=== PATIENT | female | born 1960 | race Caucasian/White ===

== ENCOUNTER → 2022-03-11 | Outpatient (CLI) | payer OTHER ==
[2022-03-11 14:33] LABS: Basophils # (A) 0.06 X 10*3/uL (0.00-0.10); Basophils % (A) 0.9 %; Eosinophils # (A) 0.11 X 10*3/uL (0.04-0.35); Eosinophils % (A) 1.7 %; HCT 36.6 % (37.2-46.3); HGB 11.8 g/dL (12.0-15.0); Immature Grans, Automated 1.2 %; Lymphocytes # (A) 2.47 X 10*3/uL (0.90-5.00); Lymphocytes % (A) 38.5 %; MCH 28.9 pg (27.0-32.0); MCHC 32.2 g/dL (32.0-37.0); MCV 89.7 fL (80.0-97.0); Mean Platelet Volume 10.4 fL (9.5-12.2); Monocytes # (A) 0.49 X 10*3/uL (0.20-1.00); Monocytes % (A) 7.6 %; NRBC Per 100 WBC 0 /100 WBCS (0.0-0.0); Neutrophils % (A) 50.1 %; Platelet Count 269 X 10*3/uL (140-440); RBC 4.08 X 10*6/uL (4.10-5.20); RDW 11.8 % (11.5-14.5); WBC 6.41 X 10*3/uL (4.50-10.00)
[2022-03-11 15:03] LABS: African American GFR (CKD) 112.7 (60.0-200.0); Albumin 4.1 g/dL (3.8-4.9); Albumin/Globulin Ratio 1.31 (1.60-3.17); BUN/Creat Ratio 30.54 Ratio (12.00-20.00); Blood Urea Nitrogen 18.6 mg/dL (9.0-27.0); C Reactive Protein, High Sens 2.18 mg/L (0.000-3.000); Calcium 10.1 mg/dL (8.7-10.3); Carbon Dioxide 25.2 mmol/L (20.0-27.5); Globulin 3.2 g/dL (1.6-3.3); Non-African American GFR(CKD) 97.2 (60.0-200.0); Potassium 4.8 mmol/L (3.5-5.5); Total Bilirubin 0.4 mg/dL (0.30-1.20); Total Protein 7.3 g/dL (6.2-8.2)
== END | disposition home or self-care (01) ==
LOC: LABWHC1 10:06
PROVIDERS: ATTEND Family Medicine
DX: N17.9 Acute kidney failure, unspecified (principal); N39.0 Urinary tract infection, site not specified
CPT/HCPCS: 36415; 80053; 82306; 83970; 85025; 86141

== ENCOUNTER → 2024-08-17 | Outpatient (CLI) | payer OTHER ==
--- NOTE | 2024-08-28 14:52 | MM ---
Reason for Exam: Screening (asymptomatic). Last mammogram was performed 1 year(s) and 3 month(s) ago. Patient History: Menarche at age 12. First Full-Term at age 19. Left ovary removed at age 34. 2001, Bilateral Implants. Maternal aunt had breast cancer, age 39. Risk Values: Apoorva 5 year model risk: 1.4%. NCI Lifetime model risk: 5.8%. Prior Study Comparison: 05/07/2005 Bilateral Diagnostic Mammogram, [facility]. 06/30/2006 Bilateral Diagnostic Mammogram, [facility]. 09/16/2007 Bilateral Diagnostic Mammogram, [facility]. Tissue Density: The breasts are extremely dense, which lowers the sensitivity of mammography. Findings: Analyzed By CAD. The pattern is symmetrical. A few scattered benign punctate calcifications are present. There are markers within the outer right breast. No suspicious groups of microcalcifications, spiculated or lobular masses, architectural distortion or other secondary signs of malignancy are mammographically apparent. Overall Assessment: Benign, BI-RAD 2 Management: Screening Mammogram of both breasts in 1 year. A negative mammogram report should not preclude additional follow up of suspicious palpable abnormalities. Patient should continue monthly self breast exam. A clinical breast exam by your physician is recommended on an annual basis and results should be correlated with mammographic findings. Note on Apoorva scores and lifetime risk: 1. A Apoorva score greater than 3% is considered moderate risk. If this is the case, consider specialist referral to assess eligibility for a risk reducing agent. 2. If overall lifetime risk for the development of breast cancer is 20% or higher, the patient may qualify for future screening with alternating mammogram and breast MRI. [facility], , 08/28/2024 2:49 PM. Electronically signed and approved by: Richard Conner D.O. Radiologis
== END | disposition home or self-care (01) ==
LOC: RADMAMWWP 09:22
PROVIDERS: ATTEND Family Medicine
DX: Z12.31 Encounter for screening mammogram for malignant neoplasm of breast
CPT/HCPCS: 77063; 77067

== ENCOUNTER → 2024-10-21 | Outpatient (CLI) | payer OTHER ==
--- NOTE | 2024-10-23 02:08 | MR ---
INDICATION: Patient age:Female; 63 years old; Reason for study: G50.0 TRIGEMINAL NEURALGIA G43.009 MIGRAINE WITHOUT AURA; [facility]. COMPARISON: MRA head 10/21/2024. TECHNIQUE: Multi planar, multi sequence imaging was performed through the brain without the administr ation of intravenous contrast. Specialized thin sequences were obtained through the internal auditory canals. FINDINGS: The posadas-white junctions, ventricular system, basal cisterns appear unremarkable. Age-appropriate cer ebral parenchymal volume. Diffusion-weighted imaging shows no evidence of restricted diffusion to sug gest acute/subacute infarct. Intracranial arterial flow voids are maintained. Midline structures show no abnormality. Patchy areas of high T2/FLAIR signal intensity are seen within the periventricular a nd subcortical white matter. The susceptibility weighted images do not reveal any evidence for micro- hemorrhage. The bone marrow signal is within normal limits. The paranasal sinuses and globes are unremarkable. The internal auditory canal sequences demonstrate no significant irregularity. The 7th cranial nerve s, 8 cranial nerves, and cerebellar pontine angles appear unremarkable. The bilateral trigeminal ner ves appear unremarkable. The bilateral superior cerebellar arteries come in close proximity to the bi lateral trigeminal nerves cisternal segments without definitive contact. The trigeminal nerves appear symmetric in appearance. Limited exam due to lack of intravenous contrast. IMPRESSION: 1. No evidence of intracranial mass or acute/subacute infarct. 2. Nonspecific white matter changes, likely related to small vessel ischemic disease versus other ryanne ologies such as migraines or demyelinating process. 3. The bilateral trigeminal nerves appears symmetric. The bilateral superior cerebellar arteries come in close proximity to the trigeminal nerves without definitive contact. [facility], , 10/23/2024 2:06 AM
--- NOTE | 2024-10-23 02:10 | MR ---
CLINICAL INDICATION: Trigeminal neuralgia, migraine without aura COMPARISON: MRI brain 10/21/2024 TECHNIQUE: MR angiography of the head was performed utilizing 3-D noncontrast time of flight images. 3-D reformatted MIP images were generated on a separate workstation for review. Vascular assessment was performed utilizing NASCET criteria. FINDINGS: There is no evidence for focal stenosis, large vessel occlusion, or discrete aneurysm. IMPRESSION: No evidence for focal stenosis, occlusion or aneurysm. [facility], , 10/23/2024 2:08 AM
== END | disposition home or self-care (01) ==
LOC: RADMRIMAIN 20:45
PROVIDERS: ATTEND Psychiatry & Neurology Neurology
DX: G50.0 Trigeminal neuralgia (principal); G43.009 Migraine without aura, not intractable, without status migrainosus
CPT/HCPCS: 70544; 70551